=== PATIENT | female | born 1980 | race Two or more races ===

== ENCOUNTER 2017-01-06 14:36 | Emergency (ER) | payer SELFPAY ==
[~2017-01-06] VITALS: Ht 152.4 cm; Wt 75.7 kg
[~2017-01-06 14:36] MED LIST: IBUP-1060 PO; OXYC-323 PO
[2017-01-06 14:42] VITALS: BP 133/66
[2017-01-06] MEDS ORDERED: predniSONE 20 MG TABLET PO ONE (15:00)
[2017-01-06] MEDS ORDERED: PENICILLIN G BENZATHINE LA 1,200,000 UNIT/2 ML DISP.SYRIN. IM ONE (15:00)
--- NOTE | 2017-01-06 15:36 | PHYS DOC ---
Past Medical History Past Medical History: No Pertinent History Past Surgical History: Alcohol Use: None Drug Use: None Adult General Chief Complaint Chief Complaint: SORE THROAT HPI HPI Patient is a 36 year old female with no significant medical history who presents with sore throat that began 2 days ago. Patient denies any fever but is complaining of body aches. Review of Systems Review of Systems Constitutional: Body aches Eyes: Denies change in visual acuity, redness, or eye pain [] HENT: sore throat [] Respiratory: Denies cough or shortness of breath [] Cardiovascular: No additional information not addressed in HPI [] GI: Denies abdominal pain, nausea, vomiting, bloody stools or diarrhea [] : Denies dysuria or hematuria [] Musculoskeletal: Denies back pain or joint pain [] Integument: Denies rash or skin lesions [] Neurologic: Denies headache, focal weakness or sensory changes [] Endocrine: Denies polyuria or polydipsia [] Current Medications Current Medications Current Medications Medications (Trade) Dose Ordered Sig/Nicole Start Time Stop Time Status Last Admin Dose Admin Penicillin G Benzathine (Bicillin L-A) 1,200,000 unit 1X ONCE 01/06/17 15:00 01/06/17 15:11 DC 01/06/17 15:24 1,200,000 UNIT Prednisone (Prednisone) 60 mg 1X ONCE 01/06/17 15:00 01/06/17 15:11 DC 01/06/17 15:24 60 MG Allergies Allergies Allergies Coded Allergies Type Severity Reaction Last Updated Verified No Known Drug Allergies 05/22/15 No Physical Exam Physical Exam Constitutional: Well developed, well nourished, no acute distress, non-toxic appearance. [] HENT: Normocephalic, atraumatic, bilateral external ears normal, oropharynx moist, no oral exudates, nose normal. [] Posterior pharynx with mild erythema and exudate bilaterally. Eyes: PERRLA, EOMI, conjunctiva normal, no discharge. [] Neck: Normal range of motion, no tenderness, supple, no stridor. [] Cardiovascular:Heart rate regular rhythm, no murmur [] Lungs & Thorax: Bilateral breath sounds clear to auscultation [] Abdomen: Bowel sounds normal, soft, no tenderness, no masses, no pulsatile masses. [] Skin: Warm, dry, no erythema, no rash. [] Back: No tenderness, no CVA tenderness. [] Extremities: No tenderness, no cyanosis, no clubbing, ROM intact, no edema. [] Neurologic: Alert and oriented X 3, normal motor function, normal sensory function, no focal deficits noted. [] Psychologic: Affect normal, judgement normal, mood normal. [] Current Patient Data Vital Signs Vital Signs Date Time Temp Pulse Resp B/P Pulse Ox O2 Delivery O2 Flow Rate FiO2 01/06/17 14:42 98.6 110 16 97 Room Air 98.6 EKG EKG [] Radiology/Procedures Radiology/Procedures [] Course & Med Decision Making Course & Med Decision Making Pertinent Labs and Imaging studies reviewed. (See chart for details) Patient is in the ED with sore throat complaint. Positive rapid strep. Given Bicillin injection and prednisone in the ED. Provided return precautions and discharged in stable condition. Dragon Disclaimer Dragon Disclaimer This electronic medical record was generated, in whole or in part, using a voice recognition dictation system. Departure Departure Impression: Primary Impression: Streptococcal infection Disposition: 01 HOME, SELF-CARE Condition: STABLE Referrals: UNKNOWN PCP NAME (PCP) Follow-up with your doctor in one week Patient Instructions: Strep Throat Additional Instructions: ere treated for strep infection in the emergency room. Take Tylenol/Motrin for pain or fever. Use saltwater gargles. Follow-up with your doctor in 1-2 weeks. Come back to the ED if symptoms worsen. KIMO MENDEZ APRN Jan 06, 2017 15:36
[2017-01-07 07:30] LABS: NEGATIVE OBC STREP NEG; POSITIVE OBC STREP POS
== END 2017-01-06 15:40 | disposition home or self-care (01) ==
LOC: ER 14:36
DX: A49.1 Streptococcal infection, unspecified site (principal)
CPT/HCPCS: 87880; 96372; 99283; J0561; J7512